=== PATIENT | female | born 1960 | race Caucasian/White ===

== ENCOUNTER 2017-03-09 08:50 | Emergency (ER) | payer SELFPAY ==
--- NOTE | 2017-03-09 09:33 | ERNOTE ---
Medical Problem HPI - General Chief Complaint: General Assessment Time Seen by Provider: 03/09/17 09:21 Source: patient Exam Limitations: no limitations - Immun/Allergies/Home Medications Immunizations: IMMUNIZATION HX Immunizations Up to Date Yes History of Influenza Vaccine No Hx Pneumococcal Vaccination No Allergies/Adverse Reactions: Allergies No Known Allergies Allergy (Verified 03/09/17 08:54) Home Medications: HOME MEDICATIONS Albuterol Sulfate [Albuterol Sulfate 2.5 MG/0.5ML] 1 vial IH Q4H PRN 02/29/16 [ Last Taken Unknown] Albuterol Sulfate [Proair Hfa] 2 puff IH QID PRN 02/29/16 [Last Taken Unknown] Fluticasone/Salmeterol [Advair 250-50 Diskus] 1 puff IH BID 02/29/16 [Last Taken Unknown] - History of Present History Narrative: PAtient is here as she has had two episodes of general weakness. The first happened four days ago, resolved with eating candy. She got up this morning at 04:00 to go to work when she started to feel weak again, no focal symptoms, no speech changes, slightly blurry vision. She ate a sandwich and is feeling better now. Her main concern today is that she might be diabetic as her daughter has diabetes. He is being seen for URI symptoms. Patient denies any URI symptoms but admits to feeling achy for a few days Timing: intermittent Review of Systems - Review of Systems Constitutional: Present: malaise. Absent: recent illness, fever EYE: Present: blurred vision ENT: Absent: nose pain, nose congestion, sore throat Respiratory: Absent: shortness of breath Cardiology: Absent: chest pain Gastrointestinal/Abdominal: Absent: nausea, vomiting, abdominal pain Genitourinary: Present: no symptoms reported Musculoskeletal: Present: other - generalized aches Neurological: Present: weakness - generalized, non focal. Absent: headache Endocrine: Absent: increased thirst - Patient's Past Medical History Patient History - Medical: Headache, Other Patient History - Cardiac/Respiratory: Asthma, COPD Patient History - Cancer: No Hx of Cancer Patient History - Surgical Procedures: , Tubal Ligation, T & A Patient History - Other: None LMP (females 10-50): Menopausal - Family History Brother Family History - Medical: Other Family History - Cardiac/Respiratory: Asthma Father Family History - Medical: , No pertinent hx Family History - Cardiac/Respiratory: No pertinent hx Mother Family History - Medical: No pertinent hx Family History - Cardiac/Respiratory: CVA/Stroke, TIA - Social History Living Situations: home Abuse History: No History of abuse Psych History: No pertinent hx Smoking Status: Current every day smoker Have you smoked in the past 12 months: Yes Do you dip or chew tobacco: No Alcohol Use: none Drug Use: none - Immunizations Immunizations Up to Date: Yes Hx Pneumococcal Vaccination: No History of Influenza Vaccine: No Physical Exam - Physical Exam General Appearance: Present: wd/wn, alert, no apparent distress Head Exam: Present: normal inspection Eye Exam: Normal inspection: bilateral, PERRL: bilateral, EOMI: bilateral Ears, Nose, Throat: Present: normal ENT inspection, normal pharynx Respiratory: Present: no respiratory distress, no accessory muscle use, lungs clear, decreased breath sounds, expiration (prolonged) Cardiovascular/Chest: Present: regular rate, rhythm, no murmur Gastrointestinal/Abdominal: Present: nontender, nondistended Extremity Exam: Present: no edema Neurological Exam: Present: alert, oriented, normal mood/affect, no motor/ sensory deficits, 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 - Vital Signs Patient's Vital Signs:: I have reviewed the patient's vital signs. Vital Signs: Vital Signs 03/09/17 08:55 Temperature 36.6 C Pulse Rate 64 Respiratory 14 Rate Blood Pressure 119/75 O2 Sat by Pulse 98 Oximetry - Progress/Reassessment Chief Complaint: General Assessment Progress Note-Subjective: 03/09/17 10:42 discussed test results with patient and family, Departure Clinical Impression: Viral illness - Departure Disposition: Home self-care Condition: Good Instructions: Weakness, Egfx-no-Eucf, Form - Excuse from Work, School, or Physical Activity Referrals: Jovan Jensen MD [Staff Physician] -
[2017-03-09 09:41] LABS: Hematocrit 39.8 % (37.0-47.0); Hemoglobin 13.3 gm/dL (12.5-16.0); Mean Cell Volume 91.3 fl (78-100); Mean Corpuscular Hemoglobin 30.5 pg (27-31); Mean Corpuscular Hgb Conc 33.4 g/dl (32-36); Mean Platelet Volume 9.7 fl (6.0-9.5); Platelet Count 336 K/mm3 (150-450); Red Blood Count 4.36 M/mm3 (4.2-5.4); Red Cell Distribution Width 13.4 % (11.5-14.0); White Blood Count 9.8 K/mm3 (4.0-10.5)
[2017-03-09 09:44] LABS: Total Cells Counted 100
[2017-03-09 09:50] LABS: Atypical (Reactive) Lymph 5 % (0-2); Basophil 1 % (0-1); Eosinophil 3 % (0-3); Immature Granulocyte 3 (0-1); Lymphocyte 33 % (20-51); Monocyte 1 % (0-9); Neutrophil 54 % (42-75); Neutrophil # 5.3 K/mm3 (1.3-6.0)
[2017-03-09 09:51] LABS: Platelet Estimate Normal (NORMAL); RBC Morphology Normal (NORMAL)
[2017-03-09 09:57] LABS: Urine Bilirubin Negative (NEGATIVE); Urine Blood 50 /ul (NEGATIVE); Urine Ketone Negative (NEGATIVE); Urine Nitrite Negative (NEGATIVE); Urine Protein Negative (NEGATIVE); Urine Specific Gravity 1.025 SP.GR. (1.005-1.010); Urine Urobilinogen Normal (NORMAL)
[2017-03-09 10:02] LABS: Albumin * 3.9 gm/dl (3.4-5.0); Anion Gap 12.5 mmol/L (6.8-13.8); BUN/Creatinine Ratio 13.6 (9.0-21.6); Bilirubin, Total 0.3 mg/dL (0.0-1.1); Ca. Corrected For Albumin 8.8 mg/dL (8.4-10.2); Carbon Dioxide 27.4 mmol/L (24-32.6); Potassium 3.9 mmol/L (3.4-4.6); TSH * 1.197 uIU/mL (0.358-3.74); Total Protein 7.4 gm/dL (6.2-8.2)
[2017-03-09 10:04] LABS: Urine Appearance Clear; Urine Bacteria None Seen; Urine Color Yellow; Urine RBC 0-5 /hpf (0-5); Urine WBC None Seen /hpf (0-5)
[2017-03-09 10:39] VITALS: BP 108/41
== END 2017-03-09 10:47 | disposition home or self-care (01) ==
LOC: ER 08:50
DX: B34.9 Viral infection, unspecified (principal); F17.200 Nicotine dependence, unspecified, uncomplicated
CPT/HCPCS: 36415; 80053; 81001; 84443; 85025; 99282